=== PATIENT | male | born 1985 | race Two or more races ===

== ENCOUNTER 2024-05-13 11:06 | Emergency (ER) | payer MEDICAID ==
[~2024-05-13] VITALS: Ht 175.3 cm; Wt 97.7 kg
[2024-05-13 11:16] VITALS: BP 126/86; PULSE 77; RESP 18; TEMP 98.5; O2SAT 98
[2024-05-13 11:19] LABS: COVID AG,FIA SOURCE NASAL SWAB
[2024-05-13 12:11] LABS: SARS-COV2 (COVID) ANTIGEN,FIA Negative (Negative)
== END 2024-05-13 15:50 | disposition home or self-care (01) ==
LOC: EMS 11:08
DX: Z11.52 Encounter for screening for COVID-19 (principal); Z90.49 Acquired absence of other specified parts of digestive tract; Z98.890 Other specified postprocedural states; Z20.822 Contact with and (suspected) exposure to COVID-19
CPT/HCPCS: 99283